=== PATIENT | female | born 1960 | race African-American/Black ===

== ENCOUNTER 2017-09-30 07:34 | Day surgery (SDC) | payer MEDICAID ==
[2017-09-26 08:49] LABS: BASOPHILS % 0.5 % (0.0-2.0); EOSINOPHILS % 2.1 % (0.0-5.0); HEMATOCRIT. 35.4 % (36.0-48.0); HEMOGLOBIN. 11.6 g/dL (12.0-16.0); LYMPHOCYTES % 29.4 % (20.0-50.0); MEAN CORPUSCULAR HEMOGLOBIN 27.8 pg (28.0-32.0); MEAN CORPUSCULAR VOLUME 84.5 fL (81.0-99.0); MEAN PLATELET VOLUME 8.8 fl (7.4-10.4); MONOCYTES % 11.4 % (2.0-8.0); NEUTROPHILS % 56.6 % (40.0-76.0); PLATELET 188 x1000/uL (130-400); RED BLOOD CELL COUNT 4.19 mill/uL (4.2-5.4); RED CELL DISTRIBUTION WIDTH 16.3 % (11.6-14.6)
[2017-09-26 08:50] LABS: INR 1.1; PARTIAL THROMBOPLASTIN TIME 27.2 sec (23.4-31.0)
[2017-09-26 08:53] LABS: CHLORIDE 107 mEq/L (98-107)
[~2017-09-30] VITALS: Ht 170.2 cm; Wt 77.6 kg
[~2017-09-30 07:34] MED LIST: ALBU18HF2 IH; ASPI-1159 PO; AZAT50TA18 PO; BENA40TA3 PO; CALC500T62 PO; CLOP75TA33 PO; COR6 PO; CYCL5TAB PO; DOCU-138 PO; FLUT16SP15 NS; FURO20TA4 PO; GABA-531 PO; LIP40 PO; POTA10TA11 PO; PROT40 PO; RANI150T12 PO; SPIR25TA4 PO; ZOLP10TA6 PO
[2017-09-30] MEDS ORDERED: VANCOMYCIN 1 G PREMIX 200 ML IV STA (08:15)
[2017-09-30] MEDS ORDERED: GENTAMICIN SULF 40MG/ML 2ML VIAL ONE (09:59)
[2017-09-30] MEDS ORDERED: GENTAMICIN/NS IRRIGATION 500 ML IR ONE (10:00)
[2017-09-30] MEDS ORDERED: MIDAZOLAM HCL 2 MG/2 ML VIAL ONE ×2 (10:07→10:22)
[2017-09-30] MEDS ORDERED: PROPOFOL 200MG/20ML VIAL IV ONE ×2 (10:07→12:05)
[2017-09-30] MEDS ORDERED: DEXAMETHASONE 4MG/ML 1ML VIAL ONE (10:07)
[2017-09-30] MEDS ORDERED: FENTANYL CITRATE/PF 50MCG/ML 2ML VIAL ONE ×2 (10:07→10:22)
[2017-09-30] MEDS ORDERED: ONDANSETRON HCL 4MG/2ML VIAL ONE (10:07)
[2017-09-30] MEDS ORDERED: LIDOCAINE HCL/PF 1% 10 MG/ML 5ML VIAL ONE (10:13)
[2017-09-30] MEDS ORDERED: MEPERIDINE HCL/PF 25MG/ML CPJ IV PRN ×2 (10:15)
[2017-09-30] MEDS ORDERED: LABETALOL 5MG/ML SYR 20 MG/4 ML SYRINGE IV PRN ×2 (10:15)
[2017-09-30] MEDS ORDERED: ONDANSETRON HCL 4MG/2ML VIAL IV PRN ×2 (10:15)
[2017-09-30] MEDS ORDERED: HYDROMORPHONE HCL/PF 2MG/ML CPJ IV PRN ×2 (10:15)
[2017-09-30] MEDS ORDERED: HYDROCODONE/ACETAMINOPHEN 5/325MG TABLET PO PRN (12:15)
== END 2017-09-30 17:00 | disposition home or self-care (01) ==
LOC: CCL 07:34
PROVIDERS: ATTEND Internal Medicine Clinical Cardiac Electrophysiology
DX: Z45.02 Encounter for adjustment and management of automatic implantable cardiac defibrillator (principal); I50.20 Unspecified systolic (congestive) heart failure; I11.0 Hypertensive heart disease with heart failure; E78.4 Other hyperlipidemia; F51.04 Psychophysiologic insomnia; I25.10 Atherosclerotic heart disease of native coronary artery without angina pectoris; Z88.0 Allergy status to penicillin; Z79.899 Other long term (current) drug therapy; I25.5 Ischemic cardiomyopathy; I25.2 Old myocardial infarction; Z88.5 Allergy status to narcotic agent; Z87.891 Personal history of nicotine dependence
CPT/HCPCS: 33264; 36415; 71045; 80048; 85025; 85610; 85730; 93005; 93640; C1882; J1100; J1580; J2250; J2405; J3010; J3370; J3490; J7050; J2704

== ENCOUNTER 2019-04-06 14:55 | Inpatient (IN) | payer MEDICAID ==
[~2019-04-06] VITALS: Ht 165.1 cm; Wt 78.9 kg
[~2019-04-06 14:55] MED LIST changes: -ASPI-1159 PO; +ASPI-1393 PO; -BENA40TA3 PO; +BENA40TA9 PO; +RANI-655 PO; -RANI150T12 PO; -SPIR25TA4 PO; +SPIR25TA6 PO
[2019-04-06] MEDS ORDERED: ALBUTEROL (0.083%) 2.5MG/3ML NEB HHN STA ×2 (15:39→17:12)
[2019-04-06] MEDS ORDERED: METHYLPREDNISOLONE SOD SUCC 125 MG/2 ML VIAL IV STA (15:39)
[2019-04-06] MEDS ORDERED: IPRATROPIUM BROMIDE (0.02%) 0.5MG/2.5ML NEB HHN STA (15:39)
[2019-04-06] MEDS ORDERED: ASPIRIN 81MG TABLET PO ONE (15:45)
[2019-04-06 16:08] LABS: BASOPHILS % 0.7 % (0.0-2.0); EOSINOPHILS % 1.4 % (0.0-5.0); HEMATOCRIT. 35.3 % (36.0-48.0); HEMOGLOBIN. 11.9 g/dL (12.0-16.0); LYMPHOCYTES % 25.8 % (20.0-50.0); MEAN CORPUSCULAR HEMOGLOBIN 30.2 pg (28.0-32.0); MEAN CORPUSCULAR VOLUME 89.4 fL (81.0-99.0); MEAN PLATELET VOLUME 9.4 fl (7.4-10.4); MONOCYTES % 13.3 % (2.0-8.0); NEUTROPHILS % 58.8 % (40.0-76.0); PLATELET 144 x1000/uL (130-400); RED BLOOD CELL COUNT 3.95 mill/uL (4.2-5.4)
[2019-04-06 16:15] LABS: CHLORIDE 114 mEq/L (98-107)
[2019-04-06] MEDS ORDERED: ONDANSETRON HCL 4MG/2ML INJ IV PRN (20:30)
[2019-04-06] MEDS ORDERED: CLONIDINE 0.1MG TABLET PO PRN (20:30)
[2019-04-06] MEDS ORDERED: ACETAMINOPHEN 325MG TABLET PO PRN (20:30)
[2019-04-06] MEDS ORDERED: GUAIFENESIN 200MG/10ML SUGAR FREE UDC PO PRN (20:30)
[2019-04-06] MEDS ORDERED: DOCUSATE SODIUM 100MG CAPSULE PO PRN (20:30)
[2019-04-06 20:58] LABS: CHLORIDE 112 mEq/L (98-107)
[2019-04-06 21:07] LABS: CREATINE KINASE 306 IU/L (26-192)
[2019-04-06 21:09] LABS: CREATINE KINASE MB FRACTION 4.6 ng/mL (0.5-3.6)
[2019-04-06 21:30] VITALS: BP 131/86
[2019-04-06] MEDS: AZITHROMYCIN 500 MG TABLET PO SCH (23:45)
[2019-04-06] MEDS: IPRATROPIUM/ALBUTEROL 0.5-3(2.5)MG/3ML NEB NEB PRN (23:59)
[2019-04-07] VITALS: BP 134/82
[2019-04-07] MEDS: METHYLPREDNISOLONE SOD SUCC 40 MG/ML VIAL IV SCH ×4 (00:22→21:04)
[2019-04-07 01:20] VITALS: BP 136/86
[2019-04-07 04:00] VITALS: BP 135/80
[2019-04-07 07:41] LABS: CREATINE KINASE MB FRACTION 5.7 ng/mL (0.5-3.6)
[2019-04-07] MEDS: BUDESONIDE 0.5MG/2ML NEB HHN SCH ×2 (07:44→21:16)
[2019-04-07] MEDS: IPRATROPIUM/ALBUTEROL 0.5-3(2.5)MG/3ML NEB NEB PRN ×3 (07:44→15:27)
[2019-04-07 07:57] LABS: BASOPHILS % 0.3 % (0.0-2.0); HEMATOCRIT. 38.2 % (36.0-48.0); HEMOGLOBIN. 12.5 g/dL (12.0-16.0); LYMPHOCYTES % 12.3 % (20.0-50.0); MEAN CORPUSCULAR HEMOGLOBIN 29.3 pg (28.0-32.0); MEAN CORPUSCULAR VOLUME 89.7 fL (81.0-99.0); MEAN PLATELET VOLUME 9.7 fl (7.4-10.4); MONOCYTES % 2.8 % (2.0-8.0); NEUTROPHILS % 84.6 % (40.0-76.0); PLATELET 151 x1000/uL (130-400); RED BLOOD CELL COUNT 4.26 mill/uL (4.2-5.4); RED CELL DISTRIBUTION WIDTH 14.7 % (11.6-14.6)
[2019-04-07 08:00] VITALS: BP 132/86
[2019-04-07] MEDS: ASPIRIN 81MG EC TABLET PO SCH (09:15)
[2019-04-07] MEDS: AZITHROMYCIN 500 MG TABLET PO SCH (09:15)
[2019-04-07] MEDS: ENOXAPARIN 40MG/0.4ML SYR SUBCUT SCH (09:17)
[2019-04-07] MEDS: HYDROCODONE/ACETAMINOPHEN 5/325MG TABLET PO PRN (10:54)
[2019-04-07] MEDS: CLOPIDOGREL 75MG TABLET PO SCH (10:57)
[2019-04-07] MEDS: FUROSEMIDE 40MG TABLET PO SCH (10:57)
[2019-04-07 12:00] VITALS: BP 115/68
[2019-04-07] MEDS ORDERED: PNEUMOCOCCAL 23-VAL P-SAC VAC 0.5 ML IM ONE (12:00)
[2019-04-07] MEDS ORDERED: INFLUENZA VIRUS VACCINE(AFLURIA) 0.5ML SYR IM ONE (12:00)
[2019-04-07 16:00] VITALS: BP 120/81
[2019-04-07] MEDS: ATORVASTATIN CALCIUM 40MG TABLET PO SCH (20:09)
[2019-04-07] MEDS: MAGNESIUM/ALUMINUM HYDROXIDE/SIMETHICONE 30ML UDC PO PRN (20:10)
[2019-04-07] MEDS: IPRATROPIUM/ALBUTEROL 0.5-3(2.5)MG/3ML NEB HHN SCH (21:16)
[2019-04-08] VITALS: BP 126/81
[2019-04-08] MEDS: IPRATROPIUM/ALBUTEROL 0.5-3(2.5)MG/3ML NEB HHN SCH ×5 (01:50→21:08)
[2019-04-08 05:35] LABS: CHLORIDE 110 mEq/L (98-107)
[2019-04-08 06:17] LABS: HEMATOCRIT. 36.5 % (36.0-48.0); HEMOGLOBIN. 11.8 g/dL (12.0-16.0); MEAN CORPUSCULAR HEMOGLOBIN 28.8 pg (28.0-32.0); MEAN PLATELET VOLUME 9.9 fl (7.4-10.4); PLATELET 163 x1000/uL (130-400); RED CELL DISTRIBUTION WIDTH 14.7 % (11.6-14.6)
[2019-04-08] MEDS: METHYLPREDNISOLONE SOD SUCC 40 MG/ML VIAL IV SCH (06:25)
[2019-04-08 08:00] VITALS: BP 123/85
[2019-04-08] MEDS: BUDESONIDE 0.5MG/2ML NEB HHN SCH ×2 (08:12→21:08)
[2019-04-08] MEDS: ENOXAPARIN 40MG/0.4ML SYR SUBCUT SCH (08:21)
[2019-04-08] MEDS: ASPIRIN 81MG EC TABLET PO SCH (08:22)
[2019-04-08] MEDS: CLOPIDOGREL 75MG TABLET PO SCH (08:22)
[2019-04-08] MEDS: AZITHROMYCIN 500 MG TABLET PO SCH (08:22)
[2019-04-08] MEDS: POTASSIUM CHLORIDE 10MEQ TABLET SR PO SCH (08:22)
[2019-04-08] MEDS: FUROSEMIDE 40MG TABLET PO SCH (08:22)
[2019-04-08] MEDS: HYDROCODONE/ACETAMINOPHEN 5/325MG TABLET PO PRN ×2 (09:20→20:25)
[2019-04-08 13:12] LABS: PLATELET ESTIMATE NORMAL
[2019-04-08] MEDS: METHYLPREDNISOLONE SOD SUCC 125 MG/2 ML VIAL IV SCH ×2 (13:44→20:26)
[2019-04-08] MEDS ORDERED: FUROSEMIDE 40MG/4ML VIAL IVP NR (14:00)
[2019-04-08 16:00] VITALS: BP 114/59
[2019-04-08 20:05] VITALS: BP 145/88
[2019-04-08] MEDS: ATORVASTATIN CALCIUM 40MG TABLET PO SCH (20:25)
[2019-04-09] VITALS (7 sets, daily range): BP systolic 117–134; BP diastolic 62–85
[2019-04-09] MEDS: ACETYLCYSTEINE 100MG/ML 10% VIAL 4ML INH SCH ×3 (01:02→13:57)
[2019-04-09] MEDS: IPRATROPIUM/ALBUTEROL 0.5-3(2.5)MG/3ML NEB HHN SCH ×6 (01:02→20:46)
[2019-04-09] MEDS: METHYLPREDNISOLONE SOD SUCC 125 MG/2 ML VIAL IV SCH ×3 (05:33→22:00)
[2019-04-09 06:47] LABS: HEMATOCRIT. 37.3 % (36.0-48.0); HEMOGLOBIN. 12.1 g/dL (12.0-16.0); MEAN CORPUSCULAR HEMOGLOBIN 28.9 pg (28.0-32.0); MEAN CORPUSCULAR VOLUME 89.3 fL (81.0-99.0); MEAN PLATELET VOLUME 10.3 fl (7.4-10.4); PLATELET 172 x1000/uL (130-400); RED BLOOD CELL COUNT 4.18 mill/uL (4.2-5.4); RED CELL DISTRIBUTION WIDTH 14.8 % (11.6-14.6)
[2019-04-09 07:07] LABS: CHLORIDE 107 mEq/L (98-107)
[2019-04-09] MEDS: BUDESONIDE 0.5MG/2ML NEB HHN SCH ×2 (08:29→20:47)
[2019-04-09] MEDS ORDERED: FUROSEMIDE 40MG/4ML VIAL IVP SCH (09:00)
[2019-04-09 09:25] LABS: PLATELET ESTIMATE NORMAL
[2019-04-09] MEDS: POTASSIUM CHLORIDE 10MEQ TABLET SR PO SCH (10:53)
[2019-04-09] MEDS: AZITHROMYCIN 500 MG TABLET PO SCH (10:53)
[2019-04-09] MEDS: ASPIRIN 81MG EC TABLET PO SCH (10:53)
[2019-04-09] MEDS: CLOPIDOGREL 75MG TABLET PO SCH (10:53)
[2019-04-09] MEDS: ENOXAPARIN 40MG/0.4ML SYR SUBCUT SCH (10:58)
[2019-04-09] MEDS: MAGNESIUM/ALUMINUM HYDROXIDE/SIMETHICONE 30ML UDC PO PRN (11:43)
[2019-04-09] MEDS: FUROSEMIDE 40MG/4ML VIAL IVP SCH (17:30)
[2019-04-09] MEDS: HYDROCODONE/ACETAMINOPHEN 5/325MG TABLET PO PRN (17:36)
[2019-04-09] MEDS: ATORVASTATIN CALCIUM 40MG TABLET PO SCH (21:32)
[2019-04-10] VITALS: BP 124/69
[2019-04-10] MEDS: IPRATROPIUM/ALBUTEROL 0.5-3(2.5)MG/3ML NEB HHN SCH ×4 (02:00→13:20)
[2019-04-10] MEDS: ACETYLCYSTEINE 100MG/ML 10% VIAL 4ML INH SCH ×2 (02:01→09:55)
[2019-04-10 04:00] VITALS: BP 131/73
[2019-04-10] MEDS: METHYLPREDNISOLONE SOD SUCC 125 MG/2 ML VIAL IV SCH (06:16)
[2019-04-10 06:26] LABS: CHLORIDE 104 mEq/L (98-107)
[2019-04-10 07:25] LABS: HEMATOCRIT. 38.1 % (36.0-48.0); HEMOGLOBIN. 12.3 g/dL (12.0-16.0); MEAN CORPUSCULAR HEMOGLOBIN 28.7 pg (28.0-32.0); MEAN PLATELET VOLUME 10.1 fl (7.4-10.4); PLATELET 183 x1000/uL (130-400); RED BLOOD CELL COUNT 4.28 mill/uL (4.2-5.4); RED CELL DISTRIBUTION WIDTH 14.8 % (11.6-14.6)
[2019-04-10 08:00] VITALS: BP 124/76
[2019-04-10] MEDS: ENOXAPARIN 40MG/0.4ML SYR SUBCUT SCH (09:00)
[2019-04-10] MEDS: BUDESONIDE 0.5MG/2ML NEB HHN SCH (09:54)
[2019-04-10] MEDS: MAGNESIUM/ALUMINUM HYDROXIDE/SIMETHICONE 30ML UDC PO PRN (11:00)
[2019-04-10] MEDS: CLOPIDOGREL 75MG TABLET PO SCH (11:01)
[2019-04-10] MEDS: POTASSIUM CHLORIDE 10MEQ TABLET SR PO SCH (11:01)
[2019-04-10] MEDS: AZITHROMYCIN 500 MG TABLET PO SCH (11:01)
[2019-04-10] MEDS: FUROSEMIDE 40MG/4ML VIAL IVP SCH (11:01)
[2019-04-10] MEDS: ASPIRIN 81MG EC TABLET PO SCH (11:01)
[2019-04-10 12:00] VITALS: BP 131/54
[2019-04-10 12:58] LABS: NUCLEATED RED BLOOD CELLS 2 /100 WBC
[2019-04-10 12:59] LABS: PLATELET ESTIMATE NORMAL
[2019-04-10 16:00] VITALS: BP 114/57
[2019-04-10] MEDS ORDERED: P20 MT (16:15)
[2019-04-10] MEDS ORDERED: FLUT1DIS2 INH (16:17)
[2019-04-10] MEDS ORDERED: PREDNISONE 20MG TABLET PO SCH (17:00)
== END 2019-04-10 17:38 | disposition home or self-care (01) | DRG 140 ==
LOC: ER 14:55 → 7WST 18:37 → ENRESERV 20:16
PROVIDERS: ADMIT Internal Medicine; ATTEND Internal Medicine
DX: J44.1 Chronic obstructive pulmonary disease with (acute) exacerbation (principal); J96.00 Acute respiratory failure, unspecified whether with hypoxia or hypercapnia; I50.23 Acute on chronic systolic (congestive) heart failure; J18.9 Pneumonia, unspecified organism; I27.20 Pulmonary hypertension, unspecified; I11.0 Hypertensive heart disease with heart failure; D64.9 Anemia, unspecified; E78.5 Hyperlipidemia, unspecified; I25.10 Atherosclerotic heart disease of native coronary artery without angina pectoris; I44.7 Left bundle-branch block, unspecified; I25.5 Ischemic cardiomyopathy; Z95.810 Presence of automatic (implantable) cardiac defibrillator; Z88.0 Allergy status to penicillin; Z88.5 Allergy status to narcotic agent; I73.9 Peripheral vascular disease, unspecified; Z87.891 Personal history of nicotine dependence; Z79.02 Long term (current) use of antithrombotics/antiplatelets; Z79.82 Long term (current) use of aspirin; Z79.899 Other long term (current) drug therapy; Z82.49 Family history of ischemic heart disease and other diseases of the circulatory system
CPT/HCPCS: 36415; 71045; 80048; 80061; 82550; 82553; 83735; 83880; 84443; 84484; 85379; 87070; 90686; 90732; 93005; 93306; 93970; 94644; 96374; 99285; J1650; J1940; J2920; J2930; J7608; J7611; J7620; J7626

== ENCOUNTER 2019-06-30 17:49 | Inpatient (IN) | payer MEDICAID ==
[~2019-06-30] VITALS: Ht 61 cm; Wt 68.5 kg
[~2019-06-30 17:49] MED LIST changes: -ASPI-1393 PO; +ASPI-1497 PO; +CARV12.545 MT; -COR6 PO; +FLUT1DIS2 INH; -GABA-531 PO; +LIDOCAINE HCL/PF 1% 2ML VIAL ONE; +P20 MT; -PROT40 PO; -RANI-655 PO; -ZOLP10TA6 PO
[2019-06-30] MEDS ORDERED: METHYLPREDNISOLONE SOD SUCC 125 MG/2 ML VIAL IV STA (17:53)
[2019-06-30] MEDS ORDERED: IPRATROPIUM BROMIDE (0.02%) 0.5MG/2.5ML NEB HHN STA (17:53)
[2019-06-30] MEDS ORDERED: ALBUTEROL (0.083%) 2.5MG/3ML NEB HHN STA (17:53)
[2019-06-30 18:41] LABS: BASOPHILS % 0.7 % (0.0-2.0); EOSINOPHILS % 0.1 % (0.0-5.0); HEMATOCRIT. 44.3 % (36.0-48.0); HEMOGLOBIN. 14.3 g/dL (12.0-16.0); LYMPHOCYTES % 9.7 % (20.0-50.0); MEAN CORPUSCULAR HEMOGLOBIN 29.1 pg (28.0-32.0); MEAN CORPUSCULAR VOLUME 90.1 fL (81.0-99.0); MEAN PLATELET VOLUME 9.7 fl (7.4-10.4); MONOCYTES % 12.2 % (2.0-8.0); NEUTROPHILS % 77.3 % (40.0-76.0); PLATELET 182 x1000/uL (130-400); RED BLOOD CELL COUNT 4.92 mill/uL (4.2-5.4)
[2019-06-30 18:46] LABS: CHLORIDE 100 mEq/L (98-107)
[2019-06-30] MEDS ORDERED: LORAZEPAM 2MG/ML CPJ IV ONE (21:45)
[2019-06-30] MEDS ORDERED: ACETAMINOPHEN 325MG TABLET PO PRN ×2 (22:00→22:45)
[2019-06-30] MEDS ORDERED: DOCUSATE SODIUM 100MG CAPSULE PO PRN (22:45)
[2019-06-30] MEDS ORDERED: CLONIDINE 0.1MG TABLET PO PRN (22:45)
[2019-06-30] MEDS ORDERED: MAGNESIUM/ALUMINUM HYDROXIDE/SIMETHICONE 30ML UDC PO PRN (22:45)
[2019-06-30] MEDS ORDERED: ENOXAPARIN 40MG/0.4ML SYR SUBCUT SCH (22:45)
[2019-06-30] MEDS ORDERED: ONDANSETRON HCL 4MG/2ML INJ IV PRN (22:45)
[2019-06-30] MEDS ORDERED: GUAIFENESIN 200MG/10ML SUGAR FREE UDC PO PRN (22:45)
[2019-07-01] VITALS (9 sets, daily range): BP systolic 115–136; BP diastolic 60–89
[2019-07-01] MEDS ORDERED: IOHEXOL-350 100 ML BOTTLE ONE (04:34)
[2019-07-01] MEDS: METHYLPREDNISOLONE SOD SUCC 40 MG/ML VIAL IV SCH ×2 (06:34→15:26)
[2019-07-01] MEDS: IPRATROPIUM/ALBUTEROL 0.5-3(2.5)MG/3ML NEB NEB PRN ×2 (08:56→12:19)
[2019-07-01] MEDS ORDERED: FUROSEMIDE 40MG/4ML VIAL IVP SCH (09:00)
[2019-07-01] MEDS ORDERED: FUROSEMIDE 40MG/4ML VIAL IV SCH (09:00)
[2019-07-01] MEDS: ASPIRIN 81MG EC TABLET PO SCH (09:15)
[2019-07-01] MEDS: HEPARIN 5000 UNITS/ML VIAL SUBCUT SCH (09:16)
[2019-07-01 09:47] LABS: HEMATOCRIT. 41.4 % (36.0-48.0); HEMOGLOBIN. 13.3 g/dL (12.0-16.0); MEAN CORPUSCULAR HEMOGLOBIN 28.9 pg (28.0-32.0); MEAN CORPUSCULAR VOLUME 90.3 fL (81.0-99.0); MEAN PLATELET VOLUME 9.4 fl (7.4-10.4); PLATELET 158 x1000/uL (130-400); RED BLOOD CELL COUNT 4.58 mill/uL (4.2-5.4); RED CELL DISTRIBUTION WIDTH 15.6 % (11.6-14.6)
[2019-07-01 10:04] LABS: CHLORIDE 101 mEq/L (98-107)
[2019-07-01 10:13] LABS: CREATINE KINASE 332 IU/L (26-192)
[2019-07-01 10:16] LABS: CREATINE KINASE MB FRACTION 4.4 ng/mL (0.5-3.6)
[2019-07-01] MEDS ORDERED: AMLODIPINE 2.5MG TABLET PO NR (10:30)
[2019-07-01 13:23] LABS: PLATELET ESTIMATE NORMAL
[2019-07-01] MEDS: IPRATROPIUM/ALBUTEROL 0.5-3(2.5)MG/3ML NEB HHN SCH ×2 (15:54→20:12)
[2019-07-01 17:02] LABS: CREATINE KINASE 366 IU/L (26-192)
[2019-07-01 17:04] LABS: CREATINE KINASE MB FRACTION 5.5 ng/mL (0.5-3.6)
[2019-07-01] MEDS: BENZONATATE 100MG CAPSULE PO SCH (17:28)
[2019-07-01] MEDS: FUROSEMIDE 40MG/4ML VIAL IVP SCH (17:28)
[2019-07-02] VITALS (12 sets, daily range): BP systolic 122–138; BP diastolic 79–95
[2019-07-02] MEDS: IPRATROPIUM/ALBUTEROL 0.5-3(2.5)MG/3ML NEB HHN SCH ×6 (00:42→20:08)
[2019-07-02] MEDS: BENZONATATE 100MG CAPSULE PO SCH ×3 (00:55→17:53)
[2019-07-02] MEDS: ATORVASTATIN CALCIUM 10MG TABLET PO SCH ×2 (05:59→20:09)
[2019-07-02] MEDS: METHYLPREDNISOLONE SOD SUCC 40 MG/ML VIAL IV SCH ×3 (06:00→14:30)
[2019-07-02] MEDS: HEPARIN 5000 UNITS/ML VIAL SUBCUT SCH ×3 (06:00→20:09)
[2019-07-02 06:58] LABS: HEMATOCRIT. 40.4 % (36.0-48.0); HEMOGLOBIN. 12.9 g/dL (12.0-16.0); MEAN CORPUSCULAR HEMOGLOBIN 28.7 pg (28.0-32.0); MEAN CORPUSCULAR VOLUME 90.1 fL (81.0-99.0); MEAN PLATELET VOLUME 10.3 fl (7.4-10.4); PLATELET 173 x1000/uL (130-400); RED BLOOD CELL COUNT 4.49 mill/uL (4.2-5.4); RED CELL DISTRIBUTION WIDTH 15.4 % (11.6-14.6)
[2019-07-02 08:25] LABS: CHLORIDE 101 mEq/L (98-107)
[2019-07-02] MEDS: ASPIRIN 81MG EC TABLET PO SCH (09:46)
[2019-07-02] MEDS: CLOPIDOGREL 75MG TABLET PO SCH (09:46)
[2019-07-02] MEDS: FUROSEMIDE 40MG/4ML VIAL IVP SCH ×2 (09:46→17:53)
[2019-07-02] MEDS: AMLODIPINE 2.5MG TABLET PO SCH (09:47)
[2019-07-02 09:57] LABS: NUCLEATED RED BLOOD CELLS 1 /100 WBC; PLATELET ESTIMATE NORMAL
[2019-07-02] MEDS ORDERED: HYDROCODONE/ACETAMINOPHEN 5/325MG TABLET PO NR (15:15)
[2019-07-03] VITALS (12 sets, daily range): BP systolic 122–154; BP diastolic 66–99
[2019-07-03] MEDS: IPRATROPIUM/ALBUTEROL 0.5-3(2.5)MG/3ML NEB HHN SCH ×6 (00:18→21:22)
[2019-07-03] MEDS: BENZONATATE 100MG CAPSULE PO SCH ×3 (00:24→17:32)
[2019-07-03] MEDS: HYDROCODONE/ACETAMINOPHEN 5/325MG TABLET PO PRN ×3 (04:02→20:49)
[2019-07-03 06:26] LABS: HEMATOCRIT. 38.9 % (36.0-48.0); HEMOGLOBIN. 12.7 g/dL (12.0-16.0); MEAN CORPUSCULAR HEMOGLOBIN 29.1 pg (28.0-32.0); MEAN CORPUSCULAR VOLUME 89.3 fL (81.0-99.0); MEAN PLATELET VOLUME 10.5 fl (7.4-10.4); PLATELET 177 x1000/uL (130-400); RED BLOOD CELL COUNT 4.36 mill/uL (4.2-5.4); RED CELL DISTRIBUTION WIDTH 15.5 % (11.6-14.6)
[2019-07-03 06:53] LABS: CHLORIDE 99 mEq/L (98-107)
[2019-07-03] MEDS: PREDNISONE 20MG TABLET PO SCH ×2 (09:06→17:32)
[2019-07-03] MEDS: AMLODIPINE 2.5MG TABLET PO SCH (09:06)
[2019-07-03] MEDS: FUROSEMIDE 40MG/4ML VIAL IVP SCH ×2 (09:06→17:32)
[2019-07-03] MEDS: HEPARIN 5000 UNITS/ML VIAL SUBCUT SCH ×2 (09:06→20:39)
[2019-07-03] MEDS: ASPIRIN 81MG EC TABLET PO SCH (09:07)
[2019-07-03] MEDS: CLOPIDOGREL 75MG TABLET PO SCH (09:14)
[2019-07-03] MEDS ORDERED: TERBUTALINE SULFATE 1MG/ML VIAL SUBCUT NR (09:30)
[2019-07-03] MEDS ORDERED: AZITHROMYCIN 500 MG TABLET PO NR (09:30)
[2019-07-03] MEDS: CEFTRIAXONE 1 G PREMIX 50 ML IV SCH (11:00)
[2019-07-03 13:14] LABS: PLATELET ESTIMATE NORMAL
[2019-07-03 15:49] LABS: *AMPHETAMINES SCREEN URINE NEGATIVE (NEGATIVE); *BARBITURATES SCREEN URINE NEGATIVE (NEGATIVE); *BENZODIAZEPINES SCREEN URINE NEGATIVE (NEGATIVE); *COCAINE SCREEN URINE NEGATIVE (NEGATIVE)
[2019-07-03 15:50] LABS: CANNABINOID URINE SCREEN NEGATIVE (NEGATIVE); METHADONE URINE SCREEN NEGATIVE (NEGATIVE); OPIATES URINE SCREEN PRESUMTIVE POSITIVE (NEGATIVE); PHENCYCLIDINE URINE SCREEN NEGATIVE (NEGATIVE)
[2019-07-03] MEDS: ATORVASTATIN CALCIUM 10MG TABLET PO SCH (20:37)
[2019-07-03] MEDS: GUAIFENESIN 600MG ER TABLET PO SCH (20:37)
[2019-07-04] VITALS (12 sets, daily range): BP systolic 124–152; BP diastolic 71–92
[2019-07-04] MEDS: BENZONATATE 100MG CAPSULE PO SCH ×3 (01:01→17:23)
[2019-07-04] MEDS: IPRATROPIUM/ALBUTEROL 0.5-3(2.5)MG/3ML NEB HHN SCH ×6 (01:04→20:49)
[2019-07-04 07:07] LABS: HEMATOCRIT. 39.7 % (36.0-48.0); HEMOGLOBIN. 12.7 g/dL (12.0-16.0); MEAN CORPUSCULAR HEMOGLOBIN 29.2 pg (28.0-32.0); MEAN CORPUSCULAR VOLUME 91.2 fL (81.0-99.0); MEAN PLATELET VOLUME 10.1 fl (7.4-10.4); PLATELET 186 x1000/uL (130-400); RED BLOOD CELL COUNT 4.35 mill/uL (4.2-5.4); RED CELL DISTRIBUTION WIDTH 15.2 % (11.6-14.6)
[2019-07-04] MEDS: FUROSEMIDE 40MG/4ML VIAL IVP SCH ×2 (07:13→17:23)
[2019-07-04 08:15] LABS: CHLORIDE 96 mEq/L (98-107)
[2019-07-04] MEDS: PREDNISONE 20MG TABLET PO SCH ×2 (10:22→17:23)
[2019-07-04] MEDS: CLOPIDOGREL 75MG TABLET PO SCH (10:22)
[2019-07-04] MEDS: AZITHROMYCIN 500 MG TABLET PO SCH (10:22)
[2019-07-04] MEDS: GUAIFENESIN 600MG ER TABLET PO SCH ×2 (10:22→20:33)
[2019-07-04] MEDS: ASPIRIN 81MG EC TABLET PO SCH (10:22)
[2019-07-04] MEDS: AMLODIPINE 2.5MG TABLET PO SCH (10:23)
[2019-07-04] MEDS: HYDROCODONE/ACETAMINOPHEN 5/325MG TABLET PO PRN ×2 (10:24→21:42)
[2019-07-04] MEDS: HEPARIN 5000 UNITS/ML VIAL SUBCUT SCH ×2 (10:24→20:35)
[2019-07-04] MEDS: CEFTRIAXONE 1 G PREMIX 50 ML IV SCH (11:42)
[2019-07-04 19:00] LABS: PLATELET ESTIMATE NORMAL
[2019-07-04] MEDS: ATORVASTATIN CALCIUM 10MG TABLET PO SCH (20:33)
[2019-07-05] VITALS (7 sets, daily range): BP systolic 131–144; BP diastolic 68–84
[2019-07-05] MEDS: IPRATROPIUM/ALBUTEROL 0.5-3(2.5)MG/3ML NEB HHN SCH ×6 (00:31→21:25)
[2019-07-05] MEDS: BENZONATATE 100MG CAPSULE PO SCH ×3 (01:26→18:07)
[2019-07-05] MEDS: ONDANSETRON HCL 4MG/2ML INJ IV PRN ×2 (01:29→22:32)
[2019-07-05] MEDS: HEPARIN 5000 UNITS/ML VIAL SUBCUT SCH ×3 (09:00→21:00)
[2019-07-05] MEDS: PREDNISONE 20MG TABLET PO SCH ×2 (09:29→18:07)
[2019-07-05] MEDS: AZITHROMYCIN 500 MG TABLET PO SCH (09:29)
[2019-07-05] MEDS: GUAIFENESIN 600MG ER TABLET PO SCH ×2 (09:29→21:17)
[2019-07-05] MEDS: ASPIRIN 81MG EC TABLET PO SCH (09:29)
[2019-07-05] MEDS: CLOPIDOGREL 75MG TABLET PO SCH (09:30)
[2019-07-05] MEDS: FUROSEMIDE 40MG/4ML VIAL IVP SCH ×2 (09:30→18:07)
[2019-07-05] MEDS: AMLODIPINE 2.5MG TABLET PO SCH (09:31)
[2019-07-05] MEDS: HYDROCODONE/ACETAMINOPHEN 5/325MG TABLET PO PRN (09:50)
[2019-07-05] MEDS: CEFTRIAXONE 1 G PREMIX 50 ML IV SCH (11:00)
[2019-07-05] MEDS: ATORVASTATIN CALCIUM 10MG TABLET PO SCH (21:16)
[2019-07-06] VITALS: BP 123/79
[2019-07-06] MEDS: IPRATROPIUM/ALBUTEROL 0.5-3(2.5)MG/3ML NEB HHN SCH ×4 (00:57→13:29)
[2019-07-06] MEDS: BENZONATATE 100MG CAPSULE PO SCH ×2 (01:19→08:40)
[2019-07-06 02:00] VITALS: BP 122/83
[2019-07-06 04:00] VITALS: BP 127/78
[2019-07-06 06:00] VITALS: BP 112/85
[2019-07-06 08:00] VITALS: BP 118/84
[2019-07-06] MEDS: ASPIRIN 81MG EC TABLET PO SCH (08:40)
[2019-07-06] MEDS: PREDNISONE 20MG TABLET PO SCH (08:40)
[2019-07-06] MEDS: AZITHROMYCIN 500 MG TABLET PO SCH (08:40)
[2019-07-06] MEDS: GUAIFENESIN 600MG ER TABLET PO SCH (08:40)
[2019-07-06] MEDS: HEPARIN 5000 UNITS/ML VIAL SUBCUT SCH (08:40)
[2019-07-06] MEDS: FUROSEMIDE 40MG/4ML VIAL IVP SCH (08:41)
[2019-07-06] MEDS: AMLODIPINE 2.5MG TABLET PO SCH (08:41)
[2019-07-06] MEDS: CLOPIDOGREL 75MG TABLET PO SCH (09:00)
[2019-07-06] MEDS: CEFTRIAXONE 1 G PREMIX 50 ML IV SCH (10:13)
[2019-07-06] MEDS: HYDROCODONE/ACETAMINOPHEN 5/325MG TABLET PO PRN (10:14)
[2019-07-06] MEDS ORDERED: AMLO2.5T45 PO (11:47)
[2019-07-06] MEDS ORDERED: BENZ100C86 PO (11:47)
[2019-07-06] MEDS ORDERED: GUAI600T44 PO (11:47)
[2019-07-06] MEDS ORDERED: PANT40TA4 MT (13:36)
[2019-07-06] MEDS ORDERED: P20 PO (13:36)
[2019-07-06] MEDS ORDERED: AZIT500T8 MT (13:36)
[2019-07-06 13:56] VITALS: BP 118/84
[2019-07-06] MEDS ORDERED: FUROSEMIDE 40MG TABLET PO SCH (21:00)
[2019-07-07] MEDS ORDERED: PREDNISONE 20MG TABLET PO SCH (09:00)
== END 2019-07-06 15:54 | disposition home or self-care (01) | DRG 140 ==
LOC: ER 18:16 → 5EST 21:33 → EDBEDREQSVC 21:34 → EDBEDREQTM 21:34 → EDBEDREQ 21:34 → EDBEDREQSVC 21:36 → EDBEDREQ 22:19 → EDBEDREQTM 22:19 → ENRESERV 07-01 00:30
PROVIDERS: ADMIT Internal Medicine; ATTEND Internal Medicine
PROC: 5A09357 Assistance with Respiratory Ventilation, Less than 24 Consecutive Hours, Continuous Positive Airway Pressure (ICD-10-PCS; principal; 2019-06-30)
PROC: 5A09357 Assistance with Respiratory Ventilation, Less than 24 Consecutive Hours, Continuous Positive Airway Pressure (ICD-10-PCS; 2019-07-01)
PROC: 5A09357 Assistance with Respiratory Ventilation, Less than 24 Consecutive Hours, Continuous Positive Airway Pressure (ICD-10-PCS; 2019-07-02)
PROC: 5A09357 Assistance with Respiratory Ventilation, Less than 24 Consecutive Hours, Continuous Positive Airway Pressure (ICD-10-PCS; 2019-07-03)
DX: J44.1 Chronic obstructive pulmonary disease with (acute) exacerbation (principal); J96.00 Acute respiratory failure, unspecified whether with hypoxia or hypercapnia; I50.23 Acute on chronic systolic (congestive) heart failure; J18.9 Pneumonia, unspecified organism; I27.21 Secondary pulmonary arterial hypertension; D89.9 Disorder involving the immune mechanism, unspecified; I11.0 Hypertensive heart disease with heart failure; E87.5 Hyperkalemia; I50.82 Biventricular heart failure; I73.9 Peripheral vascular disease, unspecified; I44.7 Left bundle-branch block, unspecified; E78.5 Hyperlipidemia, unspecified; I25.5 Ischemic cardiomyopathy; I25.10 Atherosclerotic heart disease of native coronary artery without angina pectoris; E78.00 Pure hypercholesterolemia, unspecified; F17.200 Nicotine dependence, unspecified, uncomplicated; I34.0 Nonrheumatic mitral (valve) insufficiency; Z79.02 Long term (current) use of antithrombotics/antiplatelets; Z79.82 Long term (current) use of aspirin; Z79.899 Other long term (current) drug therapy; Z82.3 Family history of stroke; Z82.49 Family history of ischemic heart disease and other diseases of the circulatory system; Z95.810 Presence of automatic (implantable) cardiac defibrillator
CPT/HCPCS: 36415; 71045; 71275; 80048; 80053; 80305; 82550; 82553; 83735; 83880; 84443; 84484; 85025; 85379; 93005; 93970; 94640; 94660; 96374; 97162; 99291; A6261; J0696; J1644; J1940; J2405; J2920; J2930; J3105; J3490; J7512; J7611; J7620; Q9967

== ENCOUNTER → 2019-10-26 | Outpatient (CLI) | payer MEDICAID ==
[~2019-10-26] MED LIST changes: +AMLO2.5T45 PO; +AZIT500T8 MT; +BENZ100C86 PO; -FLUT1DIS2 INH; +GUAI600T44 PO; -LIDOCAINE HCL/PF 1% 2ML VIAL ONE; +P20 PO; +PANT40TA4 MT
== END | disposition home or self-care (01) ==
LOC: LAB 09:42
PROVIDERS: ATTEND Specialist
DX: R05 Cough (principal); Z20.828 Contact with and (suspected) exposure to other viral communicable diseases
CPT/HCPCS: U0003-CS

== ENCOUNTER 2019-10-28 06:40 | Inpatient (IN) | payer MEDICAID ==
[~2019-10-28] VITALS: Ht 160 cm; Wt 74.9 kg
[2019-10-28] MEDS ORDERED: MIDAZOLAM HCL 2 MG/2 ML VIAL ONE (09:10)
[2019-10-28] MEDS ORDERED: IOHEXOL-300 100 ML BOTTLE ONE ×2 (09:10→09:34)
[2019-10-28] MEDS ORDERED: LIDOCAINE HCL 1% 20ML VIAL (Pyxis) INJ ONE (09:10)
[2019-10-28] MEDS ORDERED: FENTANYL CITRATE/PF 50MCG/ML 2ML VIAL ONE (09:11)
[2019-10-28] MEDS ORDERED: NITROGLYCERIN 50MCG/ML 10ML VIAL (CATH LAB) IV ONE (09:21)
[2019-10-28] MEDS ORDERED: HEPARIN SODIUM 1,000 UNIT/1ML VIAL IV ONE (09:21)
[2019-10-28] MEDS ORDERED: NICARDIPINE 100MCG/ML 10ML VIAL (CATH LAB) IV ONE (09:21)
[2019-10-28] MEDS ORDERED: CLOPIDOGREL 75MG TABLET ONE (10:03)
[2019-10-28] MEDS ORDERED: ASPIRIN 325MG TABLET ONE (10:03)
[2019-10-28] MEDS ORDERED: ACETAMINOPHEN 325MG TABLET PO PRN (10:15)
[2019-10-28] MEDS ORDERED: ATROPINE SULFATE 1MG/10ML SYR IV PRN (10:15)
[2019-10-28] MEDS ORDERED: ONDANSETRON HCL 4MG/2ML INJ IV PRN (10:15)
[2019-10-28 11:35] VITALS: BP 90/50
[2019-10-28 13:37] VITALS: BP 99/65
[2019-10-28 16:00] VITALS: BP 122/65
[2019-10-28 18:00] VITALS: BP 119/71
[2019-10-28 20:00] VITALS: BP 87/59
[2019-10-28] MEDS ORDERED: ZOLPIDEM TARTRATE 5MG TABLET PO PRN (21:00)
[2019-10-28] MEDS ORDERED: ATORVASTATIN CALCIUM 40MG TABLET PO SCH (21:00)
[2019-10-28 22:00] VITALS: BP 123/81
[2019-10-29] VITALS: BP 100/67
[2019-10-29 02:06] VITALS: BP 108/72
[2019-10-29 04:00] VITALS: BP 114/90
[2019-10-29 05:56] VITALS: BP 110/77
[2019-10-29 08:00] VITALS: BP 116/68
[2019-10-29 08:49] VITALS: BP 116/69
[2019-10-29] MEDS ORDERED: CLOPIDOGREL 75MG TABLET PO SCH (09:00)
[2019-10-29] MEDS ORDERED: ASPIRIN 325MG TABLET PO SCH (09:00)
== END 2019-10-29 10:27 | disposition home or self-care (01) | DRG 175 ==
LOC: CCL 06:40 → 3WST 06:41
PROVIDERS: ADMIT Specialist; ATTEND Specialist
PROC: 027034Z Dilation of Coronary Artery, One Artery with Drug-eluting Intraluminal Device, Percutaneous Approach (ICD-10-PCS; principal; 2019-10-28)
PROC: 4A023N7 Measurement of Cardiac Sampling and Pressure, Left Heart, Percutaneous Approach (ICD-10-PCS; 2019-10-28)
PROC: B2111ZZ Fluoroscopy of Multiple Coronary Arteries using Low Osmolar Contrast (ICD-10-PCS; 2019-10-28)
DX: I34.0 Nonrheumatic mitral (valve) insufficiency (principal); I11.0 Hypertensive heart disease with heart failure; I27.20 Pulmonary hypertension, unspecified; I50.20 Unspecified systolic (congestive) heart failure; I25.10 Atherosclerotic heart disease of native coronary artery without angina pectoris; I25.5 Ischemic cardiomyopathy; I25.2 Old myocardial infarction; E78.5 Hyperlipidemia, unspecified; J44.9 Chronic obstructive pulmonary disease, unspecified; Z95.810 Presence of automatic (implantable) cardiac defibrillator; Z95.5 Presence of coronary angioplasty implant and graft
CPT/HCPCS: 93005; 93458; C1769; C1874; C1887; C1893; J1644; J2250; J3010; J3490; Q9967

== ENCOUNTER 2021-04-13 09:52 | Inpatient (IN) | payer MEDICAID ==
[~2021-04-13] VITALS: Ht 162.6 cm; Wt 85.5 kg
[~2021-04-13 09:52] MED LIST changes: -AZIT500T8 MT; -BENA40TA9 PO; -CARV12.545 MT; +FAMO20TA8 PO; +FERR325T6 MT; +LISI2.5T47 PO; -P20 MT; -P20 PO; -PANT40TA4 MT; -SPIR25TA6 PO
[2021-04-13 10:59] LABS: BASOPHILS % 0.5 % (0.0-2.0); EOSINOPHILS % 0.6 % (0.0-5.0); HEMATOCRIT. 41.3 % (36.0-48.0); HEMOGLOBIN. 13.6 g/dL (12.0-16.0); MEAN CORPUSCULAR HEMOGLOBIN 28.7 pg (28.0-32.0); MEAN CORPUSCULAR VOLUME 87.7 fL (81.0-99.0); MEAN PLATELET VOLUME 8.8 fl (7.4-10.4); MONOCYTES % 10.7 % (2.0-8.0); NEUTROPHILS % 79.2 % (40.0-76.0); PLATELET 166 x1000/uL (130-400); RED BLOOD CELL COUNT 4.72 mill/uL (4.2-5.4); RED CELL DISTRIBUTION WIDTH 17.4 % (11.6-14.6)
[2021-04-13 11:05] LABS: CHLORIDE 102 mEq/L (98-107)
[2021-04-13] MEDS ORDERED: LORAZEPAM 1MG TABLET PO ONE (12:30)
[2021-04-13] MEDS ORDERED: FUROSEMIDE 40MG/4ML VIAL IV ONE (12:30)
[2021-04-13] MEDS ORDERED: ASPIRIN 81MG TABLET PO ONE (12:30)
[2021-04-13] MEDS ORDERED: POTASSIUM CHLORIDE 20MEQ TABLET SR PO ONE (13:15)
[2021-04-13] MEDS ORDERED: IPRATROPIUM/ALBUTEROL 0.5-3(2.5)MG/3ML NEB HHN PRN (16:00)
[2021-04-13] MEDS: NITROGLYCERIN OINT 1GM/INCH UDPKT TD SCH ×2 (16:03→22:36)
[2021-04-13] MEDS ORDERED: MAGNESIUM/ALUMINUM HYDROXIDE/SIMETHICONE 30ML UDC PO PRN (17:30)
[2021-04-13] MEDS ORDERED: CLONIDINE 0.1MG TABLET PO PRN (17:30)
[2021-04-13] MEDS: ENOXAPARIN 40MG/0.4ML SYR SUBCUT SCH (18:00)
[2021-04-13] MEDS: IPRATROPIUM/ALBUTEROL 0.5-3(2.5)MG/3ML NEB HHN SCH (21:49)
[2021-04-13] MEDS: FUROSEMIDE 100MG/10ML VIAL IVP SCH (22:00)
[2021-04-13] MEDS: AMLODIPINE 2.5MG TABLET PO SCH (22:20)
[2021-04-14] MEDS: IPRATROPIUM/ALBUTEROL 0.5-3(2.5)MG/3ML NEB HHN SCH ×5 (00:25→15:45)
[2021-04-14 05:00] VITALS: BP 113/74
[2021-04-14 05:40] VITALS: BP 113/74
[2021-04-14] MEDS: NITROGLYCERIN OINT 1GM/INCH UDPKT TD SCH ×3 (06:25→22:00)
[2021-04-14] MEDS: OMEPRAZOLE 20MG CAPSULE EXTENDED RELEASE PO SCH (06:25)
[2021-04-14 08:00] VITALS: BP 119/66
[2021-04-14] MEDS: FUROSEMIDE 100MG/10ML VIAL IVP SCH (09:00)
[2021-04-14] MEDS: POTASSIUM CHLORIDE 20MEQ TABLET SR PO SCH (09:00)
[2021-04-14] MEDS: AMLODIPINE 2.5MG TABLET PO SCH ×3 (09:00→21:00)
[2021-04-14 10:19] LABS: HEMATOCRIT. 43.2 % (36.0-48.0); HEMOGLOBIN. 13.6 g/dL (12.0-16.0); MEAN CORPUSCULAR HEMOGLOBIN 28.2 pg (28.0-32.0); MEAN CORPUSCULAR VOLUME 89.8 fL (81.0-99.0); MEAN PLATELET VOLUME 9.4 fl (7.4-10.4); PLATELET 152 x1000/uL (130-400); RED BLOOD CELL COUNT 4.81 mill/uL (4.2-5.4); RED CELL DISTRIBUTION WIDTH 18.3 % (11.6-14.6)
[2021-04-14 11:15] LABS: PHOSPHORUS 7.7 mg/dL (2.5-4.9)
[2021-04-14 11:19] LABS: T4 FREE 1.18 ng/dL (0.76-1.46)
[2021-04-14 12:00] VITALS: BP 134/81
[2021-04-14] MEDS: ACETAMINOPHEN 325MG TABLET PO PRN (12:13)
[2021-04-14] MEDS: ONDANSETRON HCL 4MG/2ML INJ IV PRN ×2 (12:13→20:31)
[2021-04-14] MEDS ORDERED: METHYLPREDNISOLONE SOD SUCC 40 MG/ML VIAL IV SCH (13:00)
[2021-04-14 16:00] VITALS: BP 115/58
[2021-04-14 16:20] LABS: CREATINE KINASE 278 IU/L (26-192)
[2021-04-14] MEDS: CLOPIDOGREL 75MG TABLET PO SCH (16:25)
[2021-04-14] MEDS: METHYLPREDNISOLONE SOD SUCC 40 MG/ML VIAL IV SCH ×2 (16:25→20:31)
[2021-04-14] MEDS: ENOXAPARIN 40MG/0.4ML SYR SUBCUT SCH (17:47)
[2021-04-14 20:00] VITALS: BP 123/66
[2021-04-14] MEDS: ATORVASTATIN CALCIUM 40MG TABLET PO SCH ×2 (20:31→21:00)
[2021-04-15] VITALS: BP 128/87
[2021-04-15 03:33] LABS: CLARITY URINE CLEAR (CLEAR); COLOR URINE DARK YELLOW (YELLOW); KETONES URINE NEGATIVE (NEGATIVE); LEUKOCYTE ESTERASE URINE NEGATIVE (NEGATIVE); NITRITE URINE NEGATIVE (NEGATIVE); OCCULT BLOOD URINE 1+ (NEGATIVE); PROTEIN URINE 1+ (NEGATIVE); SPECIFIC GRAVITY URINE 1.014 (1.005-1.030)
[2021-04-15 03:47] LABS: *AMPHETAMINES SCREEN URINE NEGATIVE (NEGATIVE); *BARBITURATES SCREEN URINE NEGATIVE (NEGATIVE); *BENZODIAZEPINES SCREEN URINE NEGATIVE (NEGATIVE); *COCAINE SCREEN URINE NEGATIVE (NEGATIVE); METHADONE URINE SCREEN NEGATIVE (NEGATIVE); OPIATES URINE SCREEN NEGATIVE (NEGATIVE)
[2021-04-15 03:48] LABS: CANNABINOID URINE SCREEN NEGATIVE (NEGATIVE); PHENCYCLIDINE URINE SCREEN NEGATIVE (NEGATIVE)
[2021-04-15 04:00] VITALS: BP 122/78
[2021-04-15] MEDS: IPRATROPIUM/ALBUTEROL 0.5-3(2.5)MG/3ML NEB HHN SCH ×5 (04:28→21:15)
[2021-04-15] MEDS: NITROGLYCERIN OINT 1GM/INCH UDPKT TD SCH ×3 (05:54→22:50)
[2021-04-15] MEDS: METHYLPREDNISOLONE SOD SUCC 40 MG/ML VIAL IV SCH ×3 (05:54→20:30)
[2021-04-15] MEDS: OMEPRAZOLE 20MG CAPSULE EXTENDED RELEASE PO SCH (05:54)
[2021-04-15 08:00] VITALS: BP 138/67
[2021-04-15 08:11] LABS: BASOPHILS % 0.3 % (0.0-2.0); EOSINOPHILS % 0.2 % (0.0-5.0); HEMATOCRIT. 46.5 % (36.0-48.0); HEMOGLOBIN. 14.3 g/dL (12.0-16.0); LYMPHOCYTES % 12.6 % (20.0-50.0); MEAN CORPUSCULAR HEMOGLOBIN 27.9 pg (28.0-32.0); MEAN CORPUSCULAR VOLUME 90.6 fL (81.0-99.0); MONOCYTES % 6.6 % (2.0-8.0); NEUTROPHILS % 80.3 % (40.0-76.0); PLATELET 145 x1000/uL (130-400); RED BLOOD CELL COUNT 5.14 mill/uL (4.2-5.4); RED CELL DISTRIBUTION WIDTH 18.5 % (11.6-14.6)
[2021-04-15] MEDS ORDERED: SODIUM POLYSTYRENE SULFONATE 15 G/60 ML BOT PO SCH (09:00)
[2021-04-15] MEDS: POTASSIUM CHLORIDE 20MEQ TABLET SR PO SCH ×2 (09:00→10:40)
[2021-04-15] MEDS: AMLODIPINE 2.5MG TABLET PO SCH ×2 (10:40→20:31)
[2021-04-15] MEDS: CLOPIDOGREL 75MG TABLET PO SCH (10:41)
[2021-04-15] MEDS: FUROSEMIDE 40MG/4ML VIAL IVP SCH (10:41)
[2021-04-15] MEDS ORDERED: SODIUM POLYSTYRENE SULFONATE 15 G/60 ML BOT PO NR (11:00)
[2021-04-15 12:00] VITALS: BP 124/65
[2021-04-15] MEDS: HYDRALAZINE HCL 25MG TABLET PO SCH ×2 (13:37→22:50)
[2021-04-15 14:40] LABS: PLATELET ESTIMATE NORMAL
[2021-04-15 16:00] VITALS: BP 139/68
[2021-04-15] MEDS: ENOXAPARIN 40MG/0.4ML SYR SUBCUT SCH (17:45)
[2021-04-15 20:00] VITALS: BP 135/63
[2021-04-15] MEDS: CARVEDILOL 3.125 MG TABLET PO SCH (20:31)
[2021-04-15] MEDS: ATORVASTATIN CALCIUM 40MG TABLET PO SCH (20:31)
[2021-04-16] VITALS (7 sets, daily range): BP systolic 101–149; BP diastolic 44–84
[2021-04-16] MEDS: IPRATROPIUM/ALBUTEROL 0.5-3(2.5)MG/3ML NEB HHN SCH ×5 (00:08→20:48)
[2021-04-16] MEDS: ACETAMINOPHEN 325MG TABLET PO PRN (01:39)
[2021-04-16] MEDS: METHYLPREDNISOLONE SOD SUCC 40 MG/ML VIAL IV SCH ×3 (05:12→21:31)
[2021-04-16] MEDS: FAMOTIDINE 20MG TABLET PO SCH (05:13)
[2021-04-16] MEDS: HYDRALAZINE HCL 25MG TABLET PO SCH ×3 (05:13→21:30)
[2021-04-16] MEDS: NITROGLYCERIN OINT 1GM/INCH UDPKT TD SCH ×3 (05:14→21:30)
[2021-04-16 07:58] LABS: HEMATOCRIT. 42.9 % (36.0-48.0); HEMOGLOBIN. 13.9 g/dL (12.0-16.0); MEAN CORPUSCULAR HEMOGLOBIN 28.3 pg (28.0-32.0); MEAN CORPUSCULAR VOLUME 87.6 fL (81.0-99.0); MEAN PLATELET VOLUME 9.3 fl (7.4-10.4); PLATELET 145 x1000/uL (130-400); RED CELL DISTRIBUTION WIDTH 17.6 % (11.6-14.6)
[2021-04-16] MEDS: AMLODIPINE 2.5MG TABLET PO SCH ×2 (08:39→21:30)
[2021-04-16] MEDS: CLOPIDOGREL 75MG TABLET PO SCH (08:39)
[2021-04-16] MEDS: FUROSEMIDE 40MG/4ML VIAL IVP SCH ×2 (08:39→18:20)
[2021-04-16] MEDS: CARVEDILOL 3.125 MG TABLET PO SCH ×2 (08:40→21:31)
[2021-04-16 14:30] LABS: PLATELET ESTIMATE NORMAL
[2021-04-16 16:40] LABS: BG BASE EXCESS 6.3 mmol/L (-2.0-2.0); BG CARBOXYHEMOGLOBIN 1.3 % (0.5-1.5); BG DEOXYHEMOGLOBIN 6.9 % (0.0-5.0); BG FRACTION INSPIRED OXYGEN 50; BG HCO3 ACT 35.4 mmol/L (22.0-26.0); BG METHEMOGLOBIN 0.4 % (0.0-1.5); BG OXYHEMOGLOBIN 91.4 % (94.0-97.0); BG PCO2 70.7 mmHg (35.0-45.0); BG PH 7.317 (7.350-7.450); BG PO2 74.5 mmHg (75.0-100.0); BG SAMPLE SITE RIGHT RADIAL; BG TOTAL HEMOGLOBIN 15.6 g/dL (12.0-18.0); BG VENT MODE MASK - VENTI
[2021-04-16] MEDS: ENOXAPARIN 40MG/0.4ML SYR SUBCUT SCH (18:20)
[2021-04-16 20:10] LABS: BG BASE EXCESS 4.6 mmol/L (-2.0-2.0); BG CARBOXYHEMOGLOBIN 1.2 % (0.5-1.5); BG FRACTION INSPIRED OXYGEN 60; BG HCO3 ACT 33.6 mmol/L (22.0-26.0); BG METHEMOGLOBIN 0.5 % (0.0-1.5); BG OXYGEN SATURATION 96.9 % (92.0-98.5); BG OXYHEMOGLOBIN 95.3 % (94.0-97.0); BG PCO2 69.4 mmHg (35.0-45.0); BG PH 7.303 (7.350-7.450); BG PO2 101.1 mmHg (75.0-100.0); BG SAMPLE SITE LEFT RADIAL; BG TOTAL HEMOGLOBIN 15.6 g/dL (12.0-18.0); BG TOTAL RESPIRATORY RATE 20 b/min; BG VENT MODE MASK - BIPAP
[2021-04-16] MEDS: ATORVASTATIN CALCIUM 40MG TABLET PO SCH (21:30)
[2021-04-17] VITALS (39 sets, daily range): BP systolic 92–181; BP diastolic 48–121
[2021-04-17] MEDS: IPRATROPIUM/ALBUTEROL 0.5-3(2.5)MG/3ML NEB HHN SCH ×6 (00:25→20:54)
[2021-04-17] MEDS: FAMOTIDINE 20MG TABLET PO SCH (06:15)
[2021-04-17] MEDS: METHYLPREDNISOLONE SOD SUCC 40 MG/ML VIAL IV SCH ×3 (06:15→21:34)
[2021-04-17] MEDS: NITROGLYCERIN OINT 1GM/INCH UDPKT TD SCH ×3 (06:16→21:34)
[2021-04-17] MEDS: HYDRALAZINE HCL 25MG TABLET PO SCH ×3 (06:16→22:00)
[2021-04-17 07:14] LABS: HEMATOCRIT. 46.6 % (36.0-48.0); HEMOGLOBIN. 15.1 g/dL (12.0-16.0); MEAN CORPUSCULAR HEMOGLOBIN 28.6 pg (28.0-32.0); MEAN CORPUSCULAR VOLUME 88.1 fL (81.0-99.0); MEAN PLATELET VOLUME 9.6 fl (7.4-10.4); PLATELET 141 x1000/uL (130-400); RED BLOOD CELL COUNT 5.29 mill/uL (4.2-5.4); RED CELL DISTRIBUTION WIDTH 18.3 % (11.6-14.6)
[2021-04-17] MEDS: FUROSEMIDE 40MG/4ML VIAL IVP SCH ×2 (07:36→17:23)
[2021-04-17] MEDS: CARVEDILOL 3.125 MG TABLET PO SCH ×2 (08:55→21:34)
[2021-04-17] MEDS: AMLODIPINE 2.5MG TABLET PO SCH (08:55)
[2021-04-17] MEDS: CLOPIDOGREL 75MG TABLET PO SCH (08:55)
[2021-04-17 09:58] LABS: BG BASE EXCESS 4.8 mmol/L (-2.0-2.0); BG CARBOXYHEMOGLOBIN 1.1 % (0.5-1.5); BG DEOXYHEMOGLOBIN 0.6 % (0.0-5.0); BG FRACTION INSPIRED OXYGEN 100; BG HCO3 ACT 34.7 mmol/L (22.0-26.0); BG METHEMOGLOBIN 0.5 % (0.0-1.5); BG OXYGEN SATURATION 99.4 % (92.0-98.5); BG OXYHEMOGLOBIN 97.8 % (94.0-97.0); BG PCO2 76.3 mmHg (35.0-45.0); BG PH 7.276 (7.350-7.450); BG PO2 182.3 mmHg (75.0-100.0); BG SAMPLE SITE RIGHT RADIAL; BG TOTAL HEMOGLOBIN 15.8 g/dL (12.0-18.0); BG VENT MODE MASK - BIPAP
[2021-04-17] MEDS ORDERED: SODIUM CHLORIDE 0.9% 250 ML IV NR (11:08)
[2021-04-17 13:26] LABS: BG BASE EXCESS 7.2 mmol/L (-2.0-2.0); BG DEOXYHEMOGLOBIN 6.2 % (0.0-5.0); BG FRACTION INSPIRED OXYGEN 65; BG HCO3 ACT 36.4 mmol/L (22.0-26.0); BG METHEMOGLOBIN 0.2 % (0.0-1.5); BG OXYGEN SATURATION 93.7 % (92.0-98.5); BG OXYHEMOGLOBIN 92.6 % (94.0-97.0); BG PCO2 71.9 mmHg (35.0-45.0); BG PH 7.322 (7.350-7.450); BG PO2 76.7 mmHg (75.0-100.0); BG SAMPLE SITE RIGHT BRACHIAL; BG TOTAL HEMOGLOBIN 15.6 g/dL (12.0-18.0); BG TOTAL RESPIRATORY RATE 31 b/min; BG VENT MODE MASK - BIPAP
[2021-04-17 16:30] LABS: BG BASE EXCESS 8.4 mmol/L (-2.0-2.0); BG FRACTION INSPIRED OXYGEN 65; BG HCO3 ACT 38.1 mmol/L (22.0-26.0); BG METHEMOGLOBIN 0.5 % (0.0-1.5); BG OXYGEN SATURATION 91.9 % (92.0-98.5); BG OXYHEMOGLOBIN 90.5 % (94.0-97.0); BG PCO2 76.7 mmHg (35.0-45.0); BG PH 7.314 (7.350-7.450); BG PO2 70.8 mmHg (75.0-100.0); BG SAMPLE SITE RIGHT BRACHIAL; BG TOTAL HEMOGLOBIN 15.7 g/dL (12.0-18.0); BG TOTAL RESPIRATORY RATE 35 b/min; BG VENT MODE MASK - BIPAP
[2021-04-17 16:43] LABS: NUCLEATED RED BLOOD CELLS 3 /100 WBC
[2021-04-17 16:45] LABS: PLATELET ESTIMATE NORMAL
[2021-04-17] MEDS ORDERED: LACTULOSE 20G/30ML UDC PO SCH (17:00)
[2021-04-17] MEDS ORDERED: NOREPINEPHRINE 8 MG in DEXT 5% WATER 242 ML IV PRN (17:15)
[2021-04-17] MEDS: ENOXAPARIN 40MG/0.4ML SYR SUBCUT SCH (17:23)
[2021-04-17] MEDS ORDERED: PIPERACILLIN/TAZOBACTAM 3.375 G in DEXTROSE 5% WATER 50 ML IV SCH (18:00)
[2021-04-17 18:48] LABS: CLARITY URINE CLEAR (CLEAR); COLOR URINE YELLOW (YELLOW); KETONES URINE NEGATIVE (NEGATIVE); LEUKOCYTE ESTERASE URINE NEGATIVE (NEGATIVE); NITRITE URINE NEGATIVE (NEGATIVE); OCCULT BLOOD URINE 1+ (NEGATIVE); PROTEIN URINE 1+ (NEGATIVE); SPECIFIC GRAVITY URINE 1.015 (1.005-1.030)
[2021-04-17] MEDS: ATORVASTATIN CALCIUM 40MG TABLET PO SCH (21:33)
[2021-04-18] VITALS (18 sets, daily range): BP systolic 31–195; BP diastolic 22–118
[2021-04-18] MEDS: FUROSEMIDE 40MG/4ML VIAL IVP SCH (00:57)
[2021-04-18] MEDS ORDERED: PROPOFOL 10MG/ML 100ML 100 ML IV PRN (01:30)
[2021-04-18] MEDS: IPRATROPIUM/ALBUTEROL 0.5-3(2.5)MG/3ML NEB HHN SCH (02:21)
[2021-04-18] MEDS ORDERED: VASOPRESSIN 20 UNIT in SODIUM CHLORIDE 0.9% 99 ML IV PRN (03:00)
[2021-04-18] MEDS ORDERED: PHENYLEPHRINE 100 MG in DEXT 5% WATER 240 ML IV PRN (03:00)
[2021-04-18] MEDS ORDERED: PIPERACILLIN/TAZOBACTAM 3.375 G in DEXTROSE 5% WATER 50 ML IV SCH (06:00)
[2021-04-18] MEDS ORDERED: METOLAZONE 2.5MG TABLET PO NR (07:00)
[2021-04-18] MEDS ORDERED: AMLODIPINE 2.5MG TABLET PO SCH (09:00)
[2021-04-18] MEDS ORDERED: EPINEPHRINE 0.1MG/ML (1:10,000) 10ML SYR ONE (13:49)
[2021-04-18] MEDS ORDERED: SODIUM BICARBONATE 8.4% 1 MEQ/ML 50ML SYR IV ONE (13:49)
== END 2021-04-18 02:53 | DRG 133 ==
LOC: ER 09:52 → MICUSO 15:57 → EDBEDREQTM 16:04 → EDBEDREQ 16:04 → 7EST 04-14 03:33 → 3WST 04-16 17:08 → MICUNO 04-17 12:08
PROVIDERS: ADMIT Internal Medicine; ATTEND Internal Medicine
PROC: 4B02XTZ Measurement of Cardiac Defibrillator, External Approach (ICD-10-PCS; 2021-04-13)
PROC: 5A09457 Assistance with Respiratory Ventilation, 24-96 Consecutive Hours, Continuous Positive Airway Pressure (ICD-10-PCS; 2021-04-16)
PROC: 5A12012 Performance of Cardiac Output, Single, Manual (ICD-10-PCS; principal; 2021-04-18)
PROC: 5A1935Z Respiratory Ventilation, Less than 24 Consecutive Hours (ICD-10-PCS; 2021-04-18)
PROC: 0BH17EZ Insertion of Endotracheal Airway into Trachea, Via Natural or Artificial Opening (ICD-10-PCS; 2021-04-18)
DX: J96.01 Acute respiratory failure with hypoxia (principal); R57.9 Shock, unspecified; G93.49 Other encephalopathy; I50.23 Acute on chronic systolic (congestive) heart failure; E44.1 Mild protein-calorie malnutrition; I13.0 Hypertensive heart and chronic kidney disease with heart failure and stage 1 through stage 4 chronic kidney disease, or unspecified chronic kidney disease; J96.02 Acute respiratory failure with hypercapnia; N17.9 Acute kidney failure, unspecified; I27.20 Pulmonary hypertension, unspecified; I49.01 Ventricular fibrillation; I46.9 Cardiac arrest, cause unspecified; R04.0 Epistaxis; N18.9 Chronic kidney disease, unspecified; N28.1 Cyst of kidney, acquired; J44.9 Chronic obstructive pulmonary disease, unspecified; E11.22 Type 2 diabetes mellitus with diabetic chronic kidney disease; E78.00 Pure hypercholesterolemia, unspecified; E78.5 Hyperlipidemia, unspecified; E87.6 Hypokalemia; I25.10 Atherosclerotic heart disease of native coronary artery without angina pectoris; I25.5 Ischemic cardiomyopathy; E80.6 Other disorders of bilirubin metabolism; E11.51 Type 2 diabetes mellitus with diabetic peripheral angiopathy without gangrene; E87.5 Hyperkalemia; I34.0 Nonrheumatic mitral (valve) insufficiency; Z87.891 Personal history of nicotine dependence; Z95.5 Presence of coronary angioplasty implant and graft; Z95.810 Presence of automatic (implantable) cardiac defibrillator; Z99.81 Dependence on supplemental oxygen; Z68.32 Body mass index [BMI] 32.0-32.9, adult; Z79.01 Long term (current) use of anticoagulants; Z79.82 Long term (current) use of aspirin; Z79.899 Other long term (current) drug therapy
CPT/HCPCS: 36415; 36600; 71045; 76770; 80048; 80053; 80061; 80076; 80305; 81003; 82140; 82375; 82550; 82805; 82962; 83735; 83880; 84100; 84145; 84439; 84443; 84484; 85025; 87077; 87186; 93005; 93306; 93970; 94003; 94640; 94660; 97162; 97166; 99291; J1650; J1940; J2405; J2543; J2704; J2920; J3490; J7060; A4315